=== PATIENT | female | born 1945 | race Caucasian/White ===

== ENCOUNTER 2018-05-19 15:18 | Emergency (ER) | payer BC ==
[2018-05-19] MEDS ORDERED: ACETAMINOPHEN 325 MG TAB ONE (16:24)
[2018-05-19] MEDS ORDERED: TETANUS/DIPHTHERIA TOXOID [ADULT] 0.5 ML VIAL IM ONE (16:24)
== END 2018-05-19 18:10 | disposition home or self-care (01) ==
LOC: EDH 15:18
DX: S92.351A Displaced fracture of fifth metatarsal bone, right foot, initial encounter for closed fracture (principal); S52.002A Unspecified fracture of upper end of left ulna, initial encounter for closed fracture; E78.5 Hyperlipidemia, unspecified; Z87.891 Personal history of nicotine dependence; W18.39XA Other fall on same level, initial encounter; Y93.01 Activity, walking, marching and hiking; Y92.89 Other specified places as the place of occurrence of the external cause; Y99.8 Other external cause status
CPT/HCPCS: 29105; 73080; 73610; 73630; 90471; 90714